=== PATIENT | female | born 1995 | race Caucasian/White ===

== ENCOUNTER 2017-02-05 23:24 | Outpatient (CLI) | payer MEDICAID ==
[~2017-02-05 23:24] MED LIST: PREN1TAB73 PO
== END 2017-02-06 00:50 | disposition home or self-care (01) ==
LOC: OBOBS 23:24 → MC 23:26 → OBOBS 02-06 00:50
PROVIDERS: ATTEND Obstetrics & Gynecology
DX: O26.893 Other specified pregnancy related conditions, third trimester (principal); N89.8 Other specified noninflammatory disorders of vagina; Z3A.34 34 weeks gestation of pregnancy
CPT/HCPCS: 84112

== ENCOUNTER 2017-03-04 15:42 | Inpatient (IN) | payer MEDICAID ==
[~2017-03-04] VITALS: Ht 174 cm; Wt 123.0 kg
--- OUTSIDE RECORDS SUMMARY | 2017-03-04 15:48 | XMS REPORT | Continuity of Care Document ---
Author Author [facility] Organization [facility] Address Unknown Phone Unavailable Support Name Relationship Address Phone JYOTI CORDOVA MD Caregiver [address] [place] [address] [address] [place] [address] Unavailable OLEG LEROY (FRIEND) Next Of Kin [address] [place], [place] [id number] Insurance Providers Guarantor Jose Smith Address [address] [place] [address] Email DENIED 16 Payer [facility] Policy Number [id number] Subscriber's Name Jose Smith Relationship 18 Self Effective Date 17 Expiration Date 17 Advance Directives Directive Response Recorded Date/Time Ordered Resuscitation Status Full Code 02/05/17 11:43pm Problems Active Problems Medical Problem Onset Date Status Anxiety Unknown Acute Bacterial vaginosis Unknown Acute Biliary colic Unknown Acute Esophageal spasm Unknown Acute GERD (gastroesophageal reflux disease) Unknown Acute IUP with subchorionic bleed Unknown Acute Pain at surgical site Unknown Acute Spotting complicating in first trimester Unknown Acute Spotting complicating in first trimester Unknown Acute Past Problems Medical Problem Onset Date Abdominal pain during in first trimester Unknown Abdominal pain during in second trimester Unknown Medications Current Home Medications Medication Dose Units Route Directions Days Qty Instructions Start Date Pnv95/Ferrous Fumarate/Fa ( Tablet) 1 Each Tablet 1 Tab Oral Daily 90 Tablet 11/23/16 Past Home Medications Medication Directions Ordered Status Doxycycline Hyclate 100 Mg Tablet, 1 Tab Oral Daily 03/23/15 Discontinued Famotidine (Pepcid) 20 Mg Tablet, 40 Mg Oral Daily 09/07/15 Discontinued Hydrocodone/Acetaminophen ([place] 5-325 Tablet) 1 Each Tablet, 1 Tab Oral Every 4-6 Hours as needed for Pain 03/30/15 Discontinued Hydrocodone/Acetaminophen ([place] 5-325 Tablet) 1 Each Tablet, 2 Tab Oral Every 6 Hours as needed for Pain 03/24/15 Discontinued Ibuprofen 800 Mg Tablet, 1 Tab Oral Every 8 Hours as needed for Pain Discontinued Ondansetron (Zofran Odt) 4 Mg Tab.rapdis, 4 Mg Oral Four Times Daily as needed for Nausea &/Or Vomiting 03/18/15 Discontinued Ondansetron Hcl (Zofran) 4 Mg Tablet, 4 Mg Oral Every 6 Hours for Nausea Discontinued Oxycodone Hcl/Acetaminophen (Oxycodone-Acetaminophen 5-325) 1 Tab Tablet, 1-2 Tab Oral Every 4-6 Hours as needed for Pain 03/24/15 Discontinued Prochlorperazine Maleate (Compazine) 10 Mg Tablet, 10 Mg Oral Four Times Daily 09/07/15 Discontinued Social History Social History Problem Response Recorded Date/Time Onset Date Status S/P cholecystectomy 03/30/2015 1:57pm Unknown Active Hx Substance Use No 11/23/2016 11:16pm Not Applicable Not Applicable Hx Alcohol Use No 11/23/2016 11:16pm Not Applicable Not Applicable Has the pt used tobacco in the last 12 months Yes 03/24/2015 7:10am Not Applicable Not Applicable Tobacco Usage smoke 03/18/2015 4:07am Not Applicable Not Applicable Hospital Discharge Instructions No hospital discharge instructions. Plan of Care Discharge Date 02/06/17 12:50am Prescriptions See Medication Section Functional Status No functional status results. Allergies, Adverse Reactions, Alerts No known allergies. Immunizations Query Response on File Recorded Date/Time Hx Influenza Vaccination Y fall 201303/30/15 12:15pm Hx Pneumococcal Vaccination No 03/30/15 12:15pm Hx Tetanus, Diptheria, Pertussis Y fall 201303/30/15 12:15pm Hx Influenza Vaccination Y fall 201303/30/15 12:15pm Hx Tetanus, Diptheria, Pertussis Y fall 201303/30/15 12:15pm Vital Signs Acute Vital Signs Vital Response Date/Time Temperature (Fahrenheit) 99.1 deg F (96.8 - 99.1) 11/23/2016 11:05pm Temperature (Calculated Celsius) 37.95563 degrees C (36.0 - 37.3) 11/23/2016 11:05pm Pulse Rate (adult) 95 bpm (60 - 100) 11/23/2016 11:05pm Respiratory Rate 19 breaths/min (10 - 20) 11/23/2016 11:05pm O2 Sat by Pulse Oximetry 96 % (90 - 100) 11/23/2016 11:05pm Blood Pressure 130/60 mm Hg 11/23/2016 11:05pm Height (Feet) 5 feet 11/23/2016 11:05pm Height (Inches) 9.00 inches 11/23/2016 11:05pm Weight (Kilograms) 111.200 kg 11/23/2016 11:05pm Body Mass Index (BMI) 36.0 11/23/2016 11:05pm Results Laboratory Results Test Name Result Units Flags Reference Collection Date/Time Result Date/ Time Comments Urine Collection Type CLEANCATCH-MIDSTREAM 11/23/2016 11:31pm 11/23 11:36pm Urine Color YELLOW YELLOW 11/23/2016 11:31pm 11/23/2016 11:36pm Urine Turbidity SL CLOUDY CLEAR 11/23/2016 11:31pm 11/23/2016 11: 36pm Urine Specific [place] >=1.030 H 1.015-1.025 11/23/2016 11:31pm 2016 11:36pm Urine pH 6.0 5.0-8.0 11/23/2016 11:31pm 11/23/2016 11:36pm Urine Leukocyte Esterase NEGATIVE NEGATIVE 11/23/2016 11:31pm 2016 11:36pm Urine Nitrite NEGATIVE NEGATIVE 11/23/2016 11:31pm 11/23/2016 11: 36pm Urine Protein TRACE A NEGATIVE 11/23/2016 11:31pm 11/23/2016 11:36pm Urine Glucose (UA) NEGATIVE NEGATIVE 11/23/2016 11:31pm 11/23/2016 11 :36pm Urine Ketones NEGATIVE NEGATIVE 11/23/2016 11:31pm 11/23/2016 11: 36pm Urine Urobilinogen 0.2 EU/DL NORMAL 11/23/2016 11:31pm 11/23/2016 11: 36pm Urine Bilirubin NEGATIVE NEGATIVE 11/23/2016 11:31pm 11/23/2016 11: 36pm Urine Blood NEGATIVE NEGATIVE 11/23/2016 11:31pm 11/23/2016 11:36pm Urine WBC NONE SEEN /HPF 0-5 11/23/2016 11:31pm 11/24/2016 12:02am Urine RBC NONE SEEN /HPF 0-3 11/23/2016 11:31pm 11/24/2016 12:02am Urine Bacteria NONE SEEN NEGATIVE 11/23/2016 11:31pm 11/24/2016 12: 02am Urine Calcium Oxalate Crystals MANY 11/23/2016 11:31pm 11/24/2016 12:02am Urine Culture Indicated CULT NOT INDICATED 11/23/2016 11:31pm 11/24 12:02am Procedures Procedure Status Date Provider(s) Urinalysis auto w/scope Completed 11/23/16 Emergency dept visit Completed 11/23/16 Encounters Encounter Location Arrival/Admit Date Discharge/Depart Date Attending Provider Departed Clinic [facility] 02/05/17 11:24pm 02/06/17 12:50am JYOTI CORDOVA MD Departed Emergency Room [facility] 11/23/16 10:58pm 11/23/16 11: 46pm ROSY ANG MD
--- OUTSIDE RECORDS SUMMARY | 2017-03-04 15:48 | XMS REPORT | Continuity of Care Document ---
Author Author [facility] Organization [facility] Address Unknown Phone Unavailable Support Name Relationship Address Phone ROSY ANG MD Caregiver [address] [place] [address] Unavailable JYOTI BETH MD Caregiver [address] [place] [address] Unavailable OLEG LEROY (FRIEND) Next Of Kin [address] [place] [address] Insurance Providers Guarantor Jose Smith Address [address] [place] [address] Email DENIED 16 Payer [facility] Policy Number [id number] Subscriber's Name Jose Smith Relationship 18 Self Effective Date 16 Expiration Date 16 Chief Complaint and Reason for Visit Chief Complaint Abdominal Injury Reason for Visit Abdominal pain during in second trimester Problems Active Problems Medical Problem Onset Date [...] 40 Mg Oral Daily 09/07/15 Discontinued Hydrocodone/Acetaminophen ([place] 5-325 Tablet) 1 Each Tablet, 1 Tab Oral Every 4-6 Hours as needed for Pain 03/30/15 Discontinued Hydrocodone/Acetaminophen ([place] 5-325 Tablet) 1 Each Tablet, 2 Tab [...] Status S/P cholecystectomy 03/30/2015 1:57pm Unknown Active Chewing Tobacco Status No 11/23/2016 11:16pm Not Applicable Not Applicable Hx Substance Use No 11/23/2016 11:16pm Not Applicable Not Applicable Hx Alcohol Use No 11/23/2016 11:16pm Not Applicable Not Applicable Has the pt used tobacco in the last 12 months Yes 03/24/2015 7:10am Not Applicable Not Applicable Tobacco Usage smoke 03/18/2015 4:07am Not Applicable Not Applicable Query Response Start Date Stop Date Smoking Status Current every day smoker Hospital Discharge Instructions No hospital discharge instructions. Plan of Care Discharge Date 11/23/16 11:46pm Disposition 01 DISCHARGED HOME, SELF-CARE Condition at Discharge Improved Instructions/Education Provided Blunt Abdominal Injury (ED) Prescriptions See Medication Section Additional Instructions/Education Use Tylenol up to 1000mg every 6 hours for pain as needed Drink at least two quarts of fluid daily. Call Dr. Beth for any problems or concerns Care Plan and Goals Physician Care Plan Problem:Minor abdominal injury during 2nd trimester Goal: Follow up with primary care provider Instructions: Take medications and follow care plan as discussed/written Use Tylenol up to 1000mg every 6 hours for pain as needed Drink at least two quarts of fluid daily. Call Dr. Beth for any problems or concerns Functional Status No functional status results. Allergies, [...] - 99.1) 11/23/2016 11:05pm Temperature (Calculated Celsius) 37.48691 degrees C (36.0 - 37.3) 11/23/2016 11:05pm [...] 11/23/2016 11:31pm 11/23/2016 11: 36pm Urine Specific [place] >=1.030 H 1.015-1.025 11/23/2016 11:31pm 2016 11:36pm [...] NOT INDICATED 11/23/2016 11:31pm 11/24 12:02am Procedures No known history of procedures. Encounters Encounter Location Arrival/Admit Date Discharge/Depart Date Attending Provider Departed Emergency Room [facility] 11/23/16 10:58pm 11/23/16 11: 46pm ROSY ANG MD Recent Diagnosis
[2017-03-04] MEDS ORDERED: DINOPROSTONE 10 MG VAGINAL INSERT VAGINALLY ONE (16:15)
[2017-03-04] MEDS ORDERED: TERBUTALINE 1 MG/ML INJECTION SQ PRN (16:15)
[2017-03-04] MEDS ORDERED: DiphenhydrAMINE 25 MG CAPSULE PO PRN (16:15)
[2017-03-04 17:21] LABS: HCT - HEMATOCRIT 36.1 % (36-46); HGB - HEMOGLOBIN 12.1 GM/DL (12-16); MEAN CORPUSCULAR HGB 29.5 UUG (26-34); MEAN CORPUSCULAR HGB CONC(MCHC 33.5 GM/DL (31-37); MEAN PLATELET VOLUME 10.9 UM3 (9.4-12.4); RED BLOOD COUNT 4.1 M/MM3 (4.00-5.20); WBC - WHITE BLOOD COUNT 8.4 T/MM3 (4.5-11.0)
[2017-03-04] MEDS ORDERED: MAG-AL + SIM LIQUID 30 ML UDC PO PRN (20:30)
[2017-03-04] MEDS ORDERED: OXYTOCIN 30 UNIT in D5LR 500 ML PRN (20:30)
[2017-03-04] MEDS ORDERED: CALCIUM CARBONATE 500mg Chewable TAB PO PRN (20:30)
[2017-03-04] MEDS ORDERED: ACETAMINOPHEN 500 MG TABLET PO PRN (20:30)
[2017-03-05] MEDS ORDERED: AMPICILLIN 2 G in NORMAL SALINE 100 ML IV ONE ×2
[2017-03-05] MEDS ORDERED: HYDROCODONE/APAP 5 mg/325 mg TABLET PO ONE (01:45)
[2017-03-05] MEDS: AMPICILLIN 1 G in NORMAL SALINE 100 ML IV SCH ×3 (04:09→12:13)
[2017-03-05] MEDS: D5LR 1,000 ML IV PRN ×2 (06:25→15:19)
--- NOTE | 2017-03-05 08:01 | ANESOB ---
Epidural/ Date/Time DATE: 03/05/17 TIME: 08:00 Preop Diagnosis Procedure: Labor Epidural Plan: Epidural Height: 5 ' 8.50 " Weight: 123.000 kg BMI: kg/m2 P:1 Medications & Allergies Inpatient Medications Current Medications Medications (Trade) Dose Ordered Sig/[place] Start Time Stop Time Status Last Admin Dose Admin Diphenhydramine HCl (Benadryl) 50 mg HS PRN 03/04/17 16:15 03/04/17 22:23 50 MG Terbutaline Sulfate 0.25 mg 0.25 mg PRN PRN 03/04/17 16:15 Lactated Ringer's (Lactated Ringers) 1,000 ml @ 0 mls/hr Q0M PRN 03/04/17 20:22 03/05/17 00:00 0 MLS/HR Acetaminophen (Tylenol Extra Strength) 1-2 TABS = 500-1,000 MG Q4H PRN 03/04/17 20:30 Al Hydroxide/Mg Hydroxide (Maalox) 30 ml Q4H PRN 03/04/17 20:30 Calcium Carbonate 1-2 TABS Q2H PRN 03/04/17 20:30 Ampicillin Sodium 1 g/Sodium Chloride 100 ml @ 200 mls/hr Q4H 03/05/17 04:00 03/05/17 04:09 200 MLS/HR Dextrose/Lactated Ringer's 1,000 ml @ 0 mls/hr Q0M PRN 03/05/17 06:00 03/05/17 06:25 0 MLS/HR Oxytocin/Dextrose/ Lactated Ringer's (Pitocin/D5lr) 503 ml @ 0 mls/hr Q0M PRN 03/04/17 20:30 03/05/17 06:26 0 MLS/HR Pnv95/Ferrous Fumarate/FA ( Tablet) 1 Each Tablet, 1 TAB PO DAILY, ( Reported) Last Taken: on 03/03/17 0900 Coded Allergies: No Known Allergies (Unverified , 11/23/16) Medical/Surgical History Anesthesia PMH: Denies: *Angina, *Diabetes, *Hypertension, *TN, Anesthesia Reactions (NO AIRWAY ISSUES; No family members with anesthesia problems), Arthritis, Asthma, CHF, COPD, CVA/Stroke/TIA, Cancer, Clotting Problems, Dysrythmia, Glaucoma, Hepatitis, Malignant Hyperthermia (no family hx of MH), Pacemaker, Pneumonia, Reflux, Renal Disease, Rheumatic Fever, Seizures, Thyroid Disease Smoking Status: Former smoker # of Packs/Tins per Day: 0.5 # of Years: 6 Does patient use chewing tobac: No Second Hand Exposure: No Substance Use Type: does not use Alcohol Intake: none Anesthesia Adverse Reactions: FOUND none Family Hx of Anesthesia Advers: none Hx of Motion Sickness: No Complications During : No Pertinent Findings Laboratory Tests 03/04/17 16:37 Physical Exam Respiratory: Lungs clear Cardiovascular: No murmur, Regular rate, rhythm Airway Assessment Mallampati Score: II TMD: 3 Fingerbreadths Neck Extension: Good Teeth: Chipped Teeth/Crowns Overall Assessment: May Be Diff Intubation ASA: 2 Discussion Discussed risks/options/alternatives of anesthesia. Patient consents. Nursing pain assessment noted. Present for Discussion: Present: Family Member Attestation Statement Prior to the delivery of any anesthetic medication, I examined the patient, developed the plan, obtained the patient's consent and discussed the risk and benefits of the procedure with the patient/guardian. If the note happens to be signed after anesthesia start time, it is only due to providing efficient care of the patient and documenting at a time when the computer is available. KEYANA WATSON CRNA March 05, 2017 08:01
[2017-03-05] MEDS ORDERED: ROPIVACAINE 1% 200 MG, SUFENTANIL 50 MCG in NORMAL SALINE 80 ML EPI PRN (08:15)
[2017-03-05] MEDS ORDERED: DiphenhydrAMINE 50 MG/ML INJECTION IV PRN (08:15)
[2017-03-05] MEDS ORDERED: NALOXONE 0.4mg/ml INJECTION IV PRN (08:15)
[2017-03-05] MEDS ORDERED: ONDANSETRON 4mg/2ml INJECTION IV PRN (08:15)
[2017-03-05] MEDS: LR 1,000 ML IV PRN ×3 (12:12→15:20)
[2017-03-05] MEDS: IBUPROFEN 800 MG TABLET PO SCH ×2 (16:15→21:42)
[2017-03-05] MEDS ORDERED: OXYTOCIN 30 UNIT in D5W 500 ML IV ONE (16:55)
[2017-03-05] MEDS ORDERED: PHENYLEPHRINE RECTAL SUPPOSITORY RECTALLY PRN (17:00)
[2017-03-05] MEDS ORDERED: MILK OF MAGNESIA 30 ML SUSP PO PRN (17:00)
[2017-03-05] MEDS ORDERED: CALCIUM CARBONATE 500mg Chewable TAB PO PRN (17:00)
[2017-03-05] MEDS ORDERED: DiphenhydrAMINE 25 MG CAPSULE PO PRN (17:00)
[2017-03-05] MEDS ORDERED: ACETAMINOPHEN 500 MG TABLET PO PRN (17:00)
[2017-03-05] MEDS ORDERED: MAG-AL + SIM LIQUID 30 ML UDC PO PRN (17:00)
[2017-03-05] MEDS ORDERED: HYDROCORTISONE 2.5% CREAM 30 GM RECTALLY PRN (17:00)
--- NOTE | 2017-03-05 18:38 | PNF ---
DATE OF DELIVERY 03/05/2017 NARRATIVE Ms. Miguel began to push at the complete and +2 position. She pushed for a short time, delivering the head in the OA position. There were repetitive deep variable decelerations prior to that time but she was pushing well, so I elected not to intervene operatively. Upon delivery of the head there was a loose nuchal cord x 1 that was reduced and baby delivered with a further push. Baby was then bulb suctioned and placed on mother's abdomen. Baby was not responding very quickly so the cord was doubly clamped. It was cut by the baby's father, Edin. The baby was then given to the nurses for care. This is a liveborn male with Apgars 7/8/8, weighing 8 pounds 3 ounces. After a few moments the placenta delivered spontaneously intact with a normal three-vessel cord and normal appearance. The patient had a small second-degree midline laceration that was repaired in the usual fashion with a 3-0 Vicryl. There was a very superficial right labial laceration that was hemostatic that was not repaired. There was another right labeling laceration that was bleeding and was repaired with a subcuticular style 3-0 undyed Vicryl. Total blood loss was approximately 300 mL. At the time of this dictation mother and baby are doing well. [facility]
[2017-03-05] MEDS: HYDROCODONE/APAP 5 mg/325 mg TABLET PO PRN (19:30)
--- NOTE | 2017-03-05 20:23 | NUR ---
Epidural Epidural catheter removed without complications, tip intact, no S/S of infection noted. Area cleansed with alcohol, betadine and covered with a bandaid. Pt. educated about S/S of infection and to call doctor with concerns.
--- NOTE | 2017-03-05 20:30 | NUR ---
Progress Note Pt ambulated to bathroom with RN supervision and denied dizziness. Pt voided 150cc. RN educated pt about pericare and skin care. Pt verbalized understanding and performed self pericare, RN assisted with skin care. Pad and ice pack changed with tucks pads and benzo spray applied. Will continue to monitor per plan of care.
[2017-03-05 21:25] VITALS: BP 129/79; PULSE 81; RESP 18; TEMP 97.9; O2SAT 98
[2017-03-06] MEDS: HYDROCODONE/APAP 5 mg/325 mg TABLET PO PRN ×6 (00:03→20:44)
--- NOTE | 2017-03-06 00:47 | NUR ---
Chart Check 24 hour chart check completed
--- NOTE | 2017-03-06 01:51 | NUR ---
Shift Summary Pt's VS stable. Fundus firm, minimal lochia, and voiding w/o difficulty. IVSL. Pt tolerating po fluids and regular diet. Pt performing cares for self and baby with help of FOB at bedside. Pain controlled with po pain meds as ordered, Motrin and [place]. Pt up ad jacob in room and MC unit. Pt attentive to needs and bonding appropriately. Call moore in reach. Will continue to monitor per plan of care.
[2017-03-06] MEDS: IBUPROFEN 800 MG TABLET PO SCH ×2 (05:19→13:12)
[2017-03-06 05:30] VITALS: BP 133/81; PULSE 88; RESP 16; TEMP 98; O2SAT 98
--- NOTE | 2017-03-06 08:16 | PNPDOC ---
Progress Note PPD1 Rubella: Immune GBS: Positive Blood Type:O pos Subjective 03/06/17 Lochia: Moderate Pain: Controlled Voiding: Voiding Nausea and Vomiting: No Nausea/Vomiting Objective VSS AF Vital Signs Date Time Temp Pulse Resp B/P Pulse Ox O2 Delivery O2 Flow Rate FiO2 03/06/17 05:30 98.0 88 16 133/81 98 Room Air General: Alert and Oriented Respiratory: Non-labored Abdomen: Fundus Firm Extremities: Non-tender Edema: None Assessment Plan Routine Care NIMISHA RAMOS STRAIGHTEDGE MAN March 06, 2017 08:15
--- NOTE | 2017-03-06 08:59 | ANESPO ---
Post-Op Note Date 03/06/17 Time: 08:58 Status Pt Participated in Evaluation: Pt participated in person Vital Signs Date Time Temp Pulse Resp B/P Pulse Ox O2 Delivery O2 Flow Rate FiO2 03/06/17 05:30 98.0 88 16 133/81 98 Room Air Respiratory Function: Airway patent, Regular respirations Cardiovascular Function: Regular pulse Mental Status: Alert/oriented Pain Level Intensity: 0 Hydration: Taking po fluids Complications during Recovery None apparent Follow-Up Instructions Instructions Per Surgeon KEYANA WATSON CRNA March 06, 2017 08:59
[2017-03-06] MEDS: DOCUSATE CALCIUM 240 MG CAPSULE PO SCH (10:47)
[2017-03-06 13:30] VITALS: BP 132/79; PULSE 82; RESP 16; TEMP 97.9; O2SAT 99
[2017-03-06 21:38] VITALS: BP 146/85; PULSE 90; RESP 18; TEMP 98.4; O2SAT 98
[2017-03-07] MEDS: HYDROCODONE/APAP 5 mg/325 mg TABLET PO PRN ×2 (01:28→07:39)
[2017-03-07] MEDS: IBUPROFEN 800 MG TABLET PO SCH ×2 (01:28→09:40)
--- NOTE | 2017-03-07 02:49 | NUR ---
Chart Check 24 hour chart check completed
--- NOTE | 2017-03-07 02:49 | NUR ---
Shift Summary Pt's VS stable. Fundus firm, minimal lochia, and voiding w/o difficulty. Pt tolerating po fluids and regular diet. Pain controlled with po pain meds as ordered, Motrin and [place]. Pt up ad jacob in room. Pt showered this shift. Pt performing cares for self and baby with help of FOB at bedside. Pt attentive to infant needs and bonding appropriately. Will continue to monitor per plan of care.
[2017-03-07 09:20] VITALS: BP 137/86; PULSE 94; RESP 18; TEMP 97.1; O2SAT 98
[2017-03-07] MEDS: DOCUSATE CALCIUM 240 MG CAPSULE PO SCH (09:39)
[2017-03-07] MEDS ORDERED: IBUP-1547 PO (10:53)
[2017-03-07] MEDS ORDERED: DOCU240C40 PO (10:53)
[2017-03-07] MEDS ORDERED: HYDR-4246 PO (10:53)
== END 2017-03-07 13:30 | disposition home or self-care (01) | DRG 775 ==
LOC: MC 15:42
PROVIDERS: ADMIT Obstetrics & Gynecology; ATTEND Obstetrics & Gynecology
PROC: 10E0XZZ Delivery of Products of Conception, External Approach (ICD-10-PCS; principal; 2017-03-05)
PROC: 0UQMXZZ Repair Vulva, External Approach (ICD-10-PCS; 2017-03-05)
PROC: 3E033VJ Introduction of Other Hormone into Peripheral Vein, Percutaneous Approach (ICD-10-PCS; 2017-03-05)
PROC: 10907ZC Drainage of Amniotic Fluid, Therapeutic from Products of Conception, Via Natural or Artificial Opening (ICD-10-PCS; 2017-03-05)
DX: O26.893 Other specified pregnancy related conditions, third trimester (principal); R03.0 Elevated blood-pressure reading, without diagnosis of hypertension; O76 Abnormality in fetal heart rate and rhythm complicating labor and delivery; O99.824 Streptococcus B carrier state complicating childbirth; O70.1 Second degree perineal laceration during delivery; O69.81X0 Labor and delivery complicated by cord around neck, without compression, not applicable or unspecified; Z3A.38 38 weeks gestation of pregnancy; Z37.0 Single live birth
CPT/HCPCS: 36415; 85027; 86850; 86900; 86901